=== PATIENT | female | born 1935 | race Two or more races ===

== ENCOUNTER 2019-08-21 14:19 | Outpatient (CLI) | payer MEDICARE, MEDICAID ==
[~2019-08-21 14:19] MED LIST: ASPI-807 PO; CALC1TAB91 PO; LISI-603 PO; METF-440 PO; SIMV-46 PO
== END 2019-08-21 23:59 | disposition home or self-care (01) ==
LOC: RAD 14:19
DX: R06.2 Wheezing (principal); I70.0 Atherosclerosis of aorta; Z95.0 Presence of cardiac pacemaker
CPT/HCPCS: 71046